=== PATIENT | female | born 1970 | race Caucasian/White ===

== ENCOUNTER 2016-09-16 13:58 | Emergency (ER) | payer MEDICARE ==
[2016-09-16 14:32] LABS: BASOPHILS 0.3 % (0.0-2.0); EOSINOPHILS 0.6 % (0-7); HEMATOCRIT 40.1 % (36.0-48.0); HEMOGLOBIN 13.7 g/dL (12-16); LYMPHOCYTES 30.5 % (15-50); MCH 31.9 pg (26.0-34.0); MCHC 34.2 g/dL (31.0-37.0); MCV 93.5 fL (80.0-100.0); MEAN PLATELET VOLUME 10.5 fL (7.4-10.4); MONOCYTES 11.2 % (2-11); NEUTROPHILS 57.4 % (40-80); PLATELET COUNT 248 10x3/uL (130-400); RBC 4.29 10x6/uL (4.00-5.40); RDW 12.5 % (11.5-14.5); WBC 6.3 10x3/uL (4.8-10.8)
[2016-09-16 14:48] LABS: ALBUMIN 3.4 g/dL (3.4-5.0); ALKALINE PHOSPHATASE 69 U/L (46-116); ALT (SGPT) 32 U/L (10-68); AMYLASE - SERUM 20 U/L (25-115); BILIRUBIN - TOTAL 0.28 mg/dL (0.2-1.3); CALC OSMOLALITY 281 mosm/kg (275-300); CALCIUM 9.2 mg/dL (8.5-10.1); CARBON DIOXIDE 30.2 mmol/L (21.0-32.0); CHLORIDE - SERUM 103 mmol/L (98-107); CREATININE - SERUM 0.8 mg/dL (0.6-1.3); GLUCOSE 118 mg/dL (74-106); LIPASE 64 U/L (73-393); POTASSIUM - SERUM 4.2 mmol/L (3.5-5.1); PROTEIN - SERUM 7.4 g/dL (6.4-8.2); SODIUM 141 mmol/L (136-145); UREA NITROGEN 13 mg/dL (7-18); eGFR NON AFRICAN AMERICAN 81 mL/min (90-120)
[2016-09-16 14:50] LABS: APPEARANCE CLEAR (CLEAR); BILIRUBIN NEGATIVE (NEGATIVE); COLOR YELLOW (YELLOW); GLUCOSE NEGATIVE (NEGATIVE); KETONE NEGATIVE (NEGATIVE); LEUKOCYTE ESTERASE NEGATIVE (NEGATIVE); NITRITE NEGATIVE (NEGATIVE); PROTEIN NEGATIVE (NEGATIVE); UROBILINOGEN NORMAL (NORMAL)
[2016-10-13] MEDS ORDERED: NORCO 7.5/325 T1 TA1 PO (11:34)
[2016-10-13] MEDS ORDERED: TRAZODONE HCL50 MG PO (11:35)
[2016-10-13] MEDS ORDERED: NEXIUM40 MG PO (11:35)
[2016-10-13] MEDS ORDERED: ZOLOFT50 MG PO (11:36)
[2016-10-14 06:59] VITALS: BMI 26.6
== END 2016-09-16 20:06 | disposition home or self-care (01) ==
LOC: D.ER 13:58
PROVIDERS: Emergency Medicine
DX: R10.32 Left lower quadrant pain (principal); M54.5 Low back pain; F17.200 Nicotine dependence, unspecified, uncomplicated

== ENCOUNTER 2016-10-03 12:00 | Emergency (ER) | payer MEDICARE ==
[2016-10-13] MEDS ORDERED: NORCO 7.5/325 T1 TA1 PO (11:34)
[2016-10-13] MEDS ORDERED: TRAZODONE HCL50 MG PO (11:35)
[2016-10-13] MEDS ORDERED: NEXIUM40 MG PO (11:35)
[2016-10-13] MEDS ORDERED: ZOLOFT50 MG PO (11:36)
[2016-10-14 06:59] VITALS: BMI 26.6
== END 2016-10-03 13:34 | disposition home or self-care (01) ==
LOC: D.ER 12:00
DX: M54.12 Radiculopathy, cervical region (principal); K21.9 Gastro-esophageal reflux disease without esophagitis; K58.9 Irritable bowel syndrome, unspecified; F17.200 Nicotine dependence, unspecified, uncomplicated

== ENCOUNTER 2016-10-14 06:34 | Day surgery (SDC) | payer MEDICARE ==
[2016-10-13 12:21] LABS: HEMATOCRIT 39.3 % (36.0-48.0); HEMOGLOBIN 12.9 g/dL (12-16); MCH 31.5 pg (26.0-34.0); MCHC 32.8 g/dL (31.0-37.0); MCV 95.9 fL (80.0-100.0); MEAN PLATELET VOLUME 10.1 fL (7.4-10.4); RBC 4.1 10x6/uL (4.00-5.40); WBC 6.4 10x3/uL (4.8-10.8)
[~2016-10-14] VITALS: Ht 162.6 cm; Wt 70.3 kg
[~2016-10-14 06:34] MED LIST: NEXIUM40 MG PO; NORCO 7.5/325 T1 TA1 PO; TRAZODONE HCL50 MG PO; ZOLOFT50 MG PO
[2016-10-14 06:59] VITALS: BP 117/76; Ht 162.6 cm; Wt 70.3 kg
[2016-10-14] MEDS ORDERED: PERCOCET 10/3251 TA1 PO (09:27)
--- NOTE | 2016-10-14 13:18 | NUR ---
1045 IV DC WITH CATHER TIP INTACT
--- NOTE | 2016-10-16 10:48 | OP ---
PATIENT NAME: MARCIA JONES MEDICAL RECORD: [id number] :66 LOCATION:D[facility] ADMISSION DATE: SURGEON: MICHOACANO SABA MD DATE OF OPERATION: 10/14/2016 PREOPERATIVE DIAGNOSIS: Biceps tendinitis, impingement syndrome, acromioclavicular arthritis. POSTOPERATIVE DIAGNOSES: Biceps tendinitis, impingement syndrome, acromioclavicular arthritis. PROCEDURES: 1. Arthroscopic biceps tenotomy. 2. Arthroscopic distal clavicle excision. 3. Arthroscopic subacromial decompression, acromioplasty and bursectomy. SURGEON: Michoacano Saba MD. ANESTHESIA: General. INTRAOPERATIVE COMPLICATIONS: None. SUMMARY OF PATHOLOGIC FINDINGS: The patient had substantial biceps tendinitis with fraying of the biceps tendon at the groove. Furthermore, she had downward sloping acromion with excoriation of the coracoacromial ligament and grade IV chondromalacia of the distal clavicle. OPERATIVE SUMMARY IN DETAIL: After obtaining the appropriate preoperative orthopedic surgery consent as well as anesthetic consultation, evaluation and clearance, the patient was brought to the operating room and placed on table in supine position. After general laryngeal mask was administered, the patient was placed in a left lateral decubitus position. All pressure points were well padded to include down leg peroneal pad as well as axillary roll. The patient was held firmly to the operating table using the vacuum pack suction system. Right upper extremity and shoulder were prepped and draped in routine sterile fashion. The arm was held in the Arthrex traction boom at 30 degrees of forward flexion, 30 degrees of abduction with 10 pounds of traction laterally. Arthroscopy was established in the glenohumeral joint from a posterior portal. Anterior postal was established in the anterior safe interval. Diagnostic arthroscopy did show the above findings. Buxton tissue ablation system was utilized to complete tenotomy. Attention was then turned to the subacromial space. While on the subacromial space, a surface tissue ablation system was used to denude the undersurface of the acromion of all soft tissue elements. A 5-0 barrel bur was used to perform acromioplasty at the level of acromioclavicular joint. Through a separate anterior arthroscopic portal, a 1 cm to the distal clavicle was excised, all bursa was then removed from the superficial aspect of the rotator cuff. Rotator cuff attritional changes were noted, but no full thickness tearing. Having completed this, arthroscopy portals were closed in routine interrupted fashion using 4-0 Prolene. Sterile dressings were applied. The patient was awakened, taken to recovery room in stable condition. All final needle and sponge counts were correct. TRANSINT:[id number] Voice Confirmation ID: [id number] DOCUMENT ID: [id number] OPERATIVE REPORT [id number] MARCIA JONES MD, MICHOACANO MELCHOR at 1048 CC: [id number] DICTATION DATE: 10/14/1625 [employer] DRIVER: 10/14/16 1059 [facility] 10/14/16 [id number] [place] [address]
== END 2016-10-14 11:00 | disposition home or self-care (01) ==
LOC: D.OPS 06:34 → D.PAN 08:15 → D.OPS 08:15
PROVIDERS: Anesthesiology
DX: M75.21 Bicipital tendinitis, right shoulder (principal); M75.41 Impingement syndrome of right shoulder; M13.811 Other specified arthritis, right shoulder; M94.211 Chondromalacia, right shoulder

== ENCOUNTER 2016-10-31 10:01 | Emergency (ER) | payer MEDICARE ==
[2016-10-14 06:59] VITALS: BMI 26.6
[~2016-10-31 10:01] MED LIST changes: +PERCOCET 10/3251 TA1 PO
== END 2016-10-31 14:34 | disposition home or self-care (01) ==
LOC: D.ER 10:01
DX: G89.18 Other acute postprocedural pain (principal); M25.511 Pain in right shoulder

== ENCOUNTER 2016-11-15 08:20 | Emergency (ER) | payer MEDICARE ==
[2016-10-14 06:59] VITALS: BMI 26.6
[2016-11-15 09:01] LABS: APPEARANCE HAZY (CLEAR); BILIRUBIN NEGATIVE (NEGATIVE); COLOR YELLOW (YELLOW); GLUCOSE NEGATIVE (NEGATIVE); KETONE NEGATIVE (NEGATIVE); LEUKOCYTE ESTERASE NEGATIVE (NEGATIVE); NITRITE NEGATIVE (NEGATIVE); PROTEIN NEGATIVE (NEGATIVE); UROBILINOGEN NORMAL (NORMAL)
[2016-11-15 09:50] LABS: BASOPHILS 0.1 % (0.0-2.0); EOSINOPHILS 0.7 % (0-7); HEMATOCRIT 40.2 % (36.0-48.0); HEMOGLOBIN 13.3 g/dL (12-16); IMMATURE GRANULOCYTES 0.2 % (0-5); LYMPHOCYTES 12.5 % (15-50); MCH 31.7 pg (26.0-34.0); MCHC 33.1 g/dL (31.0-37.0); MCV 95.7 fL (80.0-100.0); MEAN PLATELET VOLUME 10.7 fL (7.4-10.4); MONOCYTES 9.7 % (2-11); NEUTROPHILS 76.8 % (40-80); PLATELET COUNT 215 10x3/uL (130-400); RDW 13.4 % (11.5-14.5); WBC 9.8 10x3/uL (4.8-10.8)
[2016-11-15 10:04] LABS: ALBUMIN 3.4 g/dL (3.4-5.0); ALKALINE PHOSPHATASE 64 U/L (46-116); ALT (SGPT) 23 U/L (10-68); BILIRUBIN - TOTAL 0.16 mg/dL (0.2-1.3); C-REACTIVE PROTEIN 1.1 mg/dL (0.0-0.9); CALC OSMOLALITY 281 mosm/kg (275-300); CALCIUM 8.7 mg/dL (8.5-10.1); CARBON DIOXIDE 28.1 mmol/L (21.0-32.0); CHLORIDE - SERUM 104 mmol/L (98-107); CREATININE - SERUM 0.8 mg/dL (0.6-1.3); GLUCOSE 101 mg/dL (74-106); POTASSIUM - SERUM 4.5 mmol/L (3.5-5.1); PROTEIN - SERUM 6.9 g/dL (6.4-8.2); SODIUM 140 mmol/L (136-145); UREA NITROGEN 21 mg/dL (7-18); eGFR NON AFRICAN AMERICAN 81 mL/min (90-120)
== END 2016-11-15 10:35 | disposition home or self-care (01) ==
LOC: D.ER 08:20
PROVIDERS: Family Medicine
DX: M54.16 Radiculopathy, lumbar region (principal)

== ENCOUNTER 2016-11-30 16:07 | Emergency (ER) | payer MEDICARE ==
[2016-10-14 06:59] VITALS: BMI 26.6
== END 2016-12-01 00:08 | disposition home or self-care (01) ==
LOC: D.ER 16:07
DX: M54.5 Low back pain (principal); K04.7 Periapical abscess without sinus; F17.200 Nicotine dependence, unspecified, uncomplicated